=== PATIENT | male | born 1995 | race Caucasian/White ===

== ENCOUNTER 2021-04-29 12:30 | Emergency (ER) | payer SELFPAY ==
[~2021-04-29] VITALS: Ht 177.8 cm; Wt 113.4 kg
[2021-04-29] MEDS ORDERED: ONDANSETRON ODT8 MG PO (15:19)
--- NOTE | 2021-04-30 18:41 | EKG ---
[facility] [address] [facility] [place], [place] [address] Signed Normal sinus rhythm Normal ECG No previous ECGs available Confirmed by JOSEFINA PATEL DO ([id number]) on 04/30/2021 6:40:52 PM Electronically Signed By: JOSEFINA PATEL DO 04/30/21 184 PATIENT NAME: HENRI CHATTERJEE Electrocardiogram DATE OF : [birth year] PHYSICIAN: JOSEFINA PATEL DO REPORT #: [id number] REPORT IS CONFIDENTIAL AND NOT TO BE RELEASED WITHOUT AUTHORIZATION
== END 2021-04-29 16:10 | disposition home or self-care (01) ==
LOC: ED 12:30
DX: U07.1 COVID-19 (principal)
CPT/HCPCS: 80053; 83735; 84484; 85025; 93005; 93010; 96361; 96374; 96375; 99284-25; J1885; J2405; J7030